=== PATIENT | female | born 1975 | race Caucasian/White ===

== ENCOUNTER 2016-08-27 19:38 | Emergency (ER) | payer OTHER ==
[2016-08-27 19:56] VITALS: BP 129/63; PULSE 67; RESP 18; TEMP 99.2; O2SAT 100
--- NOTE | 2016-08-27 20:51 | ED PDOC ---
HPI: CCC, URI, Sore Throat Time Seen by Provider: 08/27/16 20:38 Chief Complaint (Nursing): ENT Problem Chief Complaint (Provider): ENT problem History Per: Patient History/Exam Limitations: no limitations Have you had recent travel within the past 21 days to any of the following countries: [place], [place], [place] or [place]?: No Onset/Duration Of Symptoms: Days (x 4) Current Symptoms Are (Timing): Still Present Location Of Pain: Ear(s), Throat, Headache Associated Symptoms: Fever, Chills Additional Complaint(s): Walter Shafer is a 41 year old female, with no previous medical history , who presents to the ED with complaints of a sore throat ongoing for the past 4 days. Pt reports throat pain radiates to the ears and back of the head. Pt reports to also experiencing fever and chills. Pt denies changes in voice, drooling, cough or sick contact. Pt denies additional complaints at this time. PMD: none provided Past Medical History Reviewed: Historical Data, Nursing Documentation, Vital Signs Vital Signs: Last Vital Signs Temp 99.2 F 08/27/16 19:53 Pulse 67 08/27/16 19:53 Resp 18 08/27/16 19:53 BP 129/63 08/27/16 19:53 Pulse Ox 100 08/27/16 20:53 - Medical History PMH: No Chronic Diseases, Gall Bladder Disease - Family History Family History: States: No Known Family Hx - Home Medications Home Medications: Ambulatory Orders Medication Instructions Recorded Ciprofloxacin HCl [Cipro] 500 mg PO BID #20 tab 06/18/14 Famotidine [Pepcid] 20 mg PO Q12H #20 tab 06/18/14 Ondansetron [Zofran] 4 mg PO Q8H #10 tab 06/18/14 Non-Formulary 1 ea XX DAILY #1 ea 08/27/16 Pseudoephedrine [Sudafed Tab] 30 mg PO BID #20 tab 08/27/16 - Allergies Allergies/Adverse Reactions: Allergies Allergy/AdvReac Type Severity Reaction Status Date / Time No Known Allergies Allergy Verified 06/18/14 09:32 Review of Systems ROS Statement: Except As Marked, All Systems Reviewed And Found Negative Constitutional: Positive for: Fever, Chills ENT: Positive for: Ear Pain, Throat Pain Respiratory: Negative for: Cough Neurological: Positive for: Headache Physical Exam - Reviewed Nursing Documentation Reviewed: Yes Vital Signs Reviewed: Yes - Physical Exam Appears: Positive for: Well, Non-toxic, No Acute Distress Head Exam: Positive for: ATRAUMATIC, NORMAL INSPECTION, NORMOCEPHALIC Skin: Positive for: Normal Color, Warm, Dry ENT: Positive for: TM Is/Are (normal), Pharyngeal Erythema. Negative for: Sinus Pain/Drainage, Tonsillar Exudate, Tonsillar Swelling Neurologic/Psych: Positive for: Alert, Oriented. Negative for: Motor/Sensory Deficits - ECG O2 Sat by Pulse Oximetry: 100 (RA) Pulse Ox Interpretation: Normal Medical Decision Making Medical Decision Making: Initial Impression: Bacterial vs. Viral Initial Plan: * rapid strep * reevaluation strep negative pt will get psdueofed for congestion. and aurlgan for inner ear pain Scribe Attestation: Documented by Samaria Orr, acting as a scribe for Suki Gonzalez PA-C. Provider Scribe Attestation: All medical record entries made by the Scribe were at my direction and personally dictated by me. I have reviewed the chart and agree that the record accurately reflects my personal performance of the history, physical exam, medical decision making, and the department course for this patient. I have also personally directed, reviewed, and agree with the discharge instructions and disposition. Disposition - Clinical Impression Clinical Impression: Right ear pain - Patient ED Disposition Is Patient to be Admitted: No Counseled Patient/Family Regarding: Studies Performed, Diagnosis, Need For Followup - Disposition Disposition: Routine/Home Disposition Time: 21:23 Condition: STABLE Prescriptions: Non-Formulary 1 ea XX DAILY #1 ea Pseudoephedrine [Sudafed Tab] 30 mg PO BID #20 tab Instructions: Earache (ED)
== END 2016-08-27 22:28 | disposition home or self-care (01) ==
LOC: H.ER 19:38
DX: H92.01 Otalgia, right ear (principal); R51 Headache; J02.9 Acute pharyngitis, unspecified

== ENCOUNTER 2017-06-15 20:02 | Emergency (ER) | payer OTHER ==
[2017-06-15 20:17] VITALS: O2SAT 98
--- NOTE | 2017-06-15 20:47 | ED PDOC ---
HPI: General Adult Time Seen by Provider: 06/15/17 20:46 Chief Complaint (Nursing): Flu-like Symptoms Chief Complaint (Provider): flu like symptoms History Per: Patient Additional Complaint(s): 42-year-old female presents to emergency department with flulike symptoms that started yesterday. Patient has bodyaches, fever, chills, sore throat and cough. She took Motrin at 5 PM and this did not help. She vomited earlier but has been able to tolerate liquids and solids since then. No associated abdominal pain. PMD: Dr. Lloyd Past Medical History Reviewed: Historical Data Vital Signs: Last Vital Signs Temp 99.1 F 06/15/17 23:10 Pulse 68 06/15/17 23:10 Resp 18 06/15/17 23:10 BP 102/57 L 06/15/17 23:10 Pulse Ox 98 06/15/17 23:10 - Medical History PMH: No Chronic Diseases - Surgical History Surgical History: No Surg Hx - Family History Family History: States: No Known Family Hx - Living Arrangements Living Arrangements: With Family - Social History Current smoker - smoking cessation education provided: No Alcohol: None Drugs: Denies - Home Medications Home Medications: Ambulatory Orders Medication Instructions Recorded Ciprofloxacin HCl [Cipro] 500 mg PO BID #20 tab 06/18/14 Famotidine [Pepcid] 20 mg PO Q12H #20 tab 06/18/14 Ondansetron [Zofran] 4 mg PO Q8H #10 tab 06/18/14 Non-Formulary 1 ea XX DAILY #1 ea 08/27/16 Pseudoephedrine [Sudafed Tab] 30 mg PO BID #20 tab 08/27/16 Albuterol HFA [Ventolin HFA 90 1 puff IH ASDIR #1 unit 06/15/17 mcg/actuation (8 g)] Benzonatate 200 mg PO TID PRN #20 capsule 06/15/17 Levofloxacin [Levaquin] 500 mg PO DAILY #7 tablet 06/16/17 - Allergies Allergies/Adverse Reactions: Allergies Allergy/AdvReac Type Severity Reaction Status Date / Time No Known Allergies Allergy Verified 06/15/17 20:13 Review of Systems ROS Statement: Except As Marked, All Systems Reviewed And Found Negative Constitutional: Positive for: Fever, Chills, Other (body aches) Cardiovascular: Negative for: Chest Pain Respiratory: Positive for: Cough Gastrointestinal: Positive for: Nausea, Vomiting (x 1 earlier, none since). Negative for: Abdominal Pain, Diarrhea Genitourinary Female: Negative for: Dysuria Neurological: Positive for: Headache. Negative for: Dizziness Physical Exam - Reviewed Nursing Documentation Reviewed: Yes Vital Signs Reviewed: Yes - Physical Exam Appears: Positive for: Well Skin: Negative for: Rash Eye Exam: Positive for: Normal appearance ENT: Positive for: TM Is/Are (normal bilaterally), Pharyngeal Erythema Cardiovascular/Chest: Positive for: Regular Rate, Rhythm Respiratory: Positive for: Normal Breath Sounds. Negative for: Wheezing, Respiratory Distress Gastrointestinal/Abdominal: Positive for: Soft. Negative for: Tenderness, Distended, Guarding, Rebound Extremity: Positive for: Normal ROM Neurologic/Psych: Positive for: Alert, Oriented - Laboratory Results Result Diagrams: 06/15/17 21:40 06/15/17 21:40 Urine POC: Negative Urine dip results: Positive for: Leukocyte Esterase (small ), Blood (small). Negative for: Nitrate, Ketones, Glucose, Bilirubin, Protein - ECG Interpretation Of ECG: NSR 64 bpm, no acute finding, reviewed by PA and ED attending. O2 Sat by Pulse Oximetry: 98 Pulse Ox Interpretation: Normal - Other Rad Bedside chest X-Ray: Interpreted by Me, Viewed By Me X-Ray Interpretation: no acute finding Medical Decision Making Medical Decision Makin-year-old female with flu-like symptoms. Plan: Blood culture VBG CBC CMP CXR EKG IVF PO tylenol and motrin Flu swab Rapid strep test and urine dip She was aware of all diagnostic testing results. She feels better after meds given. Flu is negative. UTI noted. Will d/c with Levaquin to cover UTI and URI symptoms. Prescription for Ventolin inhaler and Tessalon Perles also provided. Disposition - Clinical Impression Clinical Impression: Influenza-like symptoms, UTI (lower urinary tract infection) - Patient ED Disposition Is Patient to be Admitted: No Counseled Patient/Family Regarding: Studies Performed, Diagnosis, Need For Followup, Rx Given - Disposition Referrals: Cristina Lloyd MD [Medical Doctor] - Disposition: Routine/Home Disposition Time: 22:44 Condition: STABLE Additional Instructions: TAKE RX MEDS DIRECTED. ALTERNATE OVER THE COUNTER TYLENOL EVERY 4 HRS (650 MG) AND OVER THE COUNTER MOTRIN (600 MG) EVERY 6 HRS FOR FEVER CONTROL AND BODY ACHES. REST AND DRINK PLENTY OF FLUIDS. FOLLOW UP IN 2-3 DAYS WITH PRIMARY CARE DOCTOR. Prescriptions: Albuterol HFA [Ventolin HFA 90 mcg/actuation (8 g)] 1 puff IH ASDIR #1 unit Benzonatate 200 mg PO TID PRN #20 capsule PRN Reason: Cough Levofloxacin [Levaquin] 500 mg PO DAILY #7 tablet Instructions: Upper Respiratory Infection (ED), Urinary Tract Infection in Women (ED) Forms: [employer] ([place]) Results - Lab Results Lab Results: 06/15/17 06/15/17 06/15/17 23:05 21:52 21:46 WBC RBC Hgb Hct MCV MCH MCHC RDW Plt Count MPV Neut % (Auto) Lymph % (Auto) [place] % (Auto) Eos % (Auto) Baso % (Auto) Neut # Lymph # [place] # Eos # Baso # pO2 35 VBG pH 7.37 VBG pCO2 44 VBG HCO3 23.9 VBG Total CO2 26.8 VBG O2 Sat (Calc) 78.9 H VBG Base Excess -0.2 L VBG Potassium 3.7 Glucose 92 Lactate 1.1 FiO2 21.0 Sodium 140.0 Potassium Chloride 108.0 H Carbon Dioxide Anion Gap BUN Creatinine Est GFR ( Amer) Est GFR (Non-Af Amer) Random Glucose Calcium Total Bilirubin AST ALT Alkaline Phosphatase Total Protein Albumin Globulin Albumin/Globulin Ratio Venous Blood Potassium 3.7 Urine Color Liseth Urine Clarity Turbid Urine pH 5.0 Ur Specific [place] 1.028 Urine Protein 30 Urine Glucose (UA) Neg Urine Ketones Negative Urine Blood Small Urine Nitrate Negative Urine Bilirubin Negative Urine Urobilinogen 0.2-1.0 Ur Leukocyte Esterase Large Urine RBC (Auto) 13 H Urine Microscopic WBC 16 H Ur Squamous Epith Cells 39 H Calcium Oxalate Crystal Mod H Urine Bacteria Occ H Influenza Typ A,B (EIA) Grp A Beta Strep Ag Negative 06/15/17 06/15/17 06/15/17 21:40 21:40 21:40 WBC 3.8 L RBC 4.29 Hgb 11.9 L Hct 36.5 MCV 85.1 MCH 27.8 MCHC 32.6 L RDW 13.8 Plt Count 146 MPV 10.1 Neut % (Auto) 68.9 Lymph % (Auto) 20.2 [place] % (Auto) 9.8 Eos % (Auto) 0.8 Baso % (Auto) 0.3 Neut # 2.6 Lymph # 0.8 L [place] # 0.4 Eos # 0.0 Baso # 0.0 pO2 VBG pH VBG pCO2 VBG HCO3 VBG Total CO2 VBG O2 Sat (Calc) VBG Base Excess VBG Potassium Glucose Lactate FiO2 Sodium 141 Potassium 4.1 Chloride 107 Carbon Dioxide 21 L Anion Gap 17 BUN 12 Creatinine 0.6 L Est GFR ( Amer) > 60 Est GFR (Non-Af Amer) > 60 Random Glucose 91 Calcium 8.4 Total Bilirubin 0.2 AST 20 ALT 32 Alkaline Phosphatase 66 Total Protein 7.0 Albumin 3.5 Globulin 3.5 Albumin/Globulin Ratio 1.0 Venous Blood Potassium Urine Color Urine Clarity Urine pH Ur Specific [place] Urine Protein Urine Glucose (UA) Urine Ketones Urine Blood Urine Nitrate Urine Bilirubin Urine Urobilinogen Ur Leukocyte Esterase Urine RBC (Auto) Urine Microscopic WBC Ur Squamous Epith Cells Calcium Oxalate Crystal Urine Bacteria Influenza Typ A,B (EIA) Negative for flu a/b Grp A Beta Strep Ag
[2017-06-15] MEDS ORDERED: Sodium Chloride 0.9% 1,000 ML IV STA ×2 (21:07→23:01)
[2017-06-15 21:49] LABS: BASO % 0.3 % (0.0-2.0); EOS % 0.8 % (0.0-4.0); HEMOGLOBIN 11.9 g/dL (12.0-16.0); LYMPH # 0.8 K/uL (1.0-4.3); LYMPH % 20.2 % (20.0-40.0); MEAN CELL VOLUME 85.1 fl (81.0-99.0); MEAN CORPUSCULAR HEMOGLOBIN 27.8 pg (27.0-31.0); MEAN CORPUSCULAR HGB CONC 32.6 g/dL (33.0-37.0); MEAN PLATELET VOLUME 10.1 fl (7.2-11.7); MONO # 0.4 K/uL (0.0-0.8); MONO % 9.8 % (0.0-10.0); NEUT # 2.6 K/uL (1.8-7.0); NEUT % 68.9 % (50.0-75.0); NRBC % 0.1 % (0.0-0.0); RBC 4.29 Mil/uL (3.80-5.20); RED CELL DISTRIBUTION WIDTH 13.8 % (11.5-14.5); WHITE BLOOD COUNT 3.8 K/uL (4.8-10.8)
[2017-06-15 21:55] LABS: VENOUS BLOOD GAS BASE EXCESS -0.2 mmol/L (0.0-2.0); VENOUS BLOOD GAS PCO2 44 mmHg (40-60); VENOUS BLOOD GAS PO2 35 mm/Hg (30-55); VENOUS BLOOD PH 7.37 (7.32-7.43)
[2017-06-15 22:06] LABS: ALBUMIN 3.5 g/dL (3.5-5.0); ALT/SGPT 32 U/L (9-52); AST/SGOT 20 U/L (14-36); BLOOD UREA NITROGEN 12 mg/dl (7-17); CALCIUM 8.4 mg/dL (8.4-10.2); GFR AFRICAN-AMERICAN > 60; GFR NON-AFRICAN AMERICAN > 60
[2017-06-16 00:38] LABS: SQUAMOUS EPITHIAL 39 /hpf (0-5); URINE BACTERIA OCC (<OCC); URINE BILIRUBIN NEGATIVE (NEGATIVE); URINE BLOOD SMALL (NEGATIVE); URINE CALCIUM OXALATE CRYSTALS MOD /hpf (<OCC); URINE CLARITY TURBID (Clear); URINE COLOR AMBER (YELLOW); URINE GLUCOSE (UA) NEG (Normal); URINE LEUKOCYTE ESTERASE LARGE Leu/uL (Negative); URINE NITRATE NEGATIVE (NEGATIVE); URINE PROTEIN 30 mg/dL (NEGATIVE); URINE UROBILINOGEN 0.2-1.0 mg/dL (0.2-1.0)
[2017-06-16 01:39] VITALS: BP 104/66; PULSE 63; RESP 16; TEMP 98.8
--- NOTE | 2017-06-16 10:26 | RAD ---
HISTORY: fever, cough COMPARISON: No prior. FINDINGS: LUNGS: Minor bibasilar atelectasis PLEURA: No significant pleural effusion identified, no pneumothorax apparent. CARDIOVASCULAR: Normal. OSSEOUS STRUCTURES: No significant abnormalities. VISUALIZED UPPER ABDOMEN: Normal. OTHER FINDINGS: None. IMPRESSION: Minor bibasilar atelectasis.
== END 2017-06-16 02:08 | disposition home or self-care (01) ==
LOC: H.ER 20:02
DX: J06.9 Acute upper respiratory infection, unspecified (principal); N39.0 Urinary tract infection, site not specified
CPT/HCPCS: 71045; 80053; 81003; 82803; 85025; 87040; 87070; 87086; 87430; 87804; 99283; J7040

== ENCOUNTER 2017-06-20 22:34 | Emergency (ER) | payer OTHER ==
[2017-06-21 00:08] VITALS: BP 155/56; PULSE 66; RESP 16; TEMP 99.6; O2SAT 100
[2017-06-21] MEDS ORDERED: Sodium Chloride 0.9% 1,000 ML IV STA (01:48)
--- NOTE | 2017-06-21 01:51 | ED PDOC ---
HPI:Nausea, Vomiting, Diarrhea Time Seen by Provider: 06/21/17 01:11 Chief Complaint (Nursing): GI Problem Chief Complaint (Provider): vomiting, diarrhea History Per: Patient History/Exam Limitations: no limitations Onset/Duration Of Symptoms: Days (3) Current Symptoms Are (Timing): Still Present Additional History Per: Patient Additional Complaint(s): 42 y/o female presents with vomiting, diarrhea x 3 days. Patient states she was seen here Sunday for flu-like symptoms and given antibiotic for UTI and cough medication. Patient states she followed up with her primary doctor Sunday and was given tamiflu for suspected Flu. Patient states that night she developed vomiting, and diarrhea started the next day. Denies fever,chest pain, shortnesss of breath, palpitations, urinary symptoms, recent travel, sick contacts. Past Medical History Reviewed: Historical Data, Nursing Documentation, Vital Signs Vital Signs: Last Vital Signs Temp 99.6 F 06/21/17 00:07 Pulse 66 06/21/17 00:07 Resp 16 06/21/17 00:07 BP 155/56 H 06/21/17 00:07 Pulse Ox 100 06/21/17 00:07 - Medical History PMH: No Chronic Diseases - Surgical History Surgical History: No Surg Hx - Family History Family History: States: No Known Family Hx - Living Arrangements Living Arrangements: With Family - Home Medications Home Medications: Ambulatory Orders Medication Instructions Recorded Ciprofloxacin HCl [Cipro] 500 mg PO BID #20 tab 06/18/14 Famotidine [Pepcid] 20 mg PO Q12H #20 tab 06/18/14 Ondansetron [Zofran] 4 mg PO Q8H #10 tab 06/18/14 Non-Formulary 1 ea XX DAILY #1 ea 08/27/16 Pseudoephedrine [Sudafed Tab] 30 mg PO BID #20 tab 08/27/16 Albuterol HFA [Ventolin HFA 90 1 puff IH ASDIR #1 unit 06/15/17 mcg/actuation (8 g)] Benzonatate 200 mg PO TID PRN #20 capsule 06/15/17 Levofloxacin [Levaquin] 500 mg PO DAILY #7 tablet 06/16/17 Dicyclomine [Bentyl] 20 mg PO TID PRN #15 tab 06/21/17 Ondansetron ODT [Zofran ODT] 4 mg PO Q8 PRN #10 odt 06/21/17 - Allergies Allergies/Adverse Reactions: Allergies Allergy/AdvReac Type Severity Reaction Status Date / Time No Known Allergies Allergy Verified 06/21/17 00:06 Review of Systems ROS Statement: Except As Marked, All Systems Reviewed And Found Negative Gastrointestinal: Positive for: Nausea, Vomiting, Abdominal Pain, Diarrhea Physical Exam - Reviewed Nursing Documentation Reviewed: Yes Vital Signs Reviewed: Yes - Physical Exam Appears: Positive for: Well, Non-toxic, No Acute Distress Head Exam: Positive for: ATRAUMATIC, NORMAL INSPECTION, NORMOCEPHALIC Skin: Positive for: Normal Color Eye Exam: Positive for: Normal appearance ENT: Positive for: Normal ENT Inspection Cardiovascular/Chest: Positive for: Regular Rate, Rhythm Respiratory: Positive for: Normal Breath Sounds Gastrointestinal/Abdominal: Positive for: Normal Exam, Bowel Sounds, Soft, Tenderness (epigastric) Back: Positive for: Normal Inspection Extremity: Positive for: Normal ROM Neurologic/Psych: Positive for: Alert, Oriented - Laboratory Results Result Diagrams: 06/21/17 02:18 06/21/17 02:18 - ECG O2 Sat by Pulse Oximetry: 100 - Progress ED Course And Treament: labs, IV fluids, IV zofran, IV pepcid, PO bentyl On re-eval, patient states she is feeling better. Tolerated PO Patient educated on findings, discharged with rx Zofran, Bentyl. Advised fluids, bland diet. Follo wup PMD 2-3 days. Return precautions given. Disposition - Clinical Impression Clinical Impression: Gastroenteritis - Patient ED Disposition Is Patient to be Admitted: No Counseled Patient/Family Regarding: Studies Performed, Diagnosis, Need For Followup, Rx Given - Disposition Disposition: Routine/Home Disposition Time: 04:08 Condition: IMPROVED Prescriptions: Dicyclomine [Bentyl] 20 mg PO TID PRN #15 tab PRN Reason: Pain, Mild (1-3) Ondansetron ODT [Zofran ODT] 4 mg PO Q8 PRN #10 odt PRN Reason: Nausea/Vomiting Instructions: Gastroenteritis (ED) Forms: [employer] (Chinese)
[2017-06-21 02:22] LABS: BASO % 0.5 % (0.0-2.0); EOS # 0.1 K/uL (0.0-0.7); EOS % 1.3 % (0.0-4.0); HEMOGLOBIN 13.2 g/dL (12.0-16.0); LYMPH % 49.5 % (20.0-40.0); MEAN CELL VOLUME 83.8 fl (81.0-99.0); MEAN CORPUSCULAR HEMOGLOBIN 27.3 pg (27.0-31.0); MEAN CORPUSCULAR HGB CONC 32.6 g/dL (33.0-37.0); MEAN PLATELET VOLUME 9.6 fl (7.2-11.7); MONO # 0.5 K/uL (0.0-0.8); NEUT # 1.4 K/uL (1.8-7.0); NEUT % 35.7 % (50.0-75.0); NRBC % 1.3 % (0.0-0.0); RBC 4.82 Mil/uL (3.80-5.20); RED CELL DISTRIBUTION WIDTH 13.2 % (11.5-14.5); WHITE BLOOD COUNT 4.1 K/uL (4.8-10.8)
[2017-06-21 02:42] LABS: ALB/GLOB RATIO 1.1 (1.0-2.1); ALBUMIN 4.2 g/dL (3.5-5.0); ALT/SGPT 30 U/L (9-52); AST/SGOT 28 U/L (14-36); BLOOD UREA NITROGEN 17 mg/dl (7-17); CALCIUM 8.8 mg/dL (8.4-10.2); GFR AFRICAN-AMERICAN > 60; GFR NON-AFRICAN AMERICAN > 60; LIPASE 34 U/L (23-300)
== END 2017-06-21 05:52 | disposition home or self-care (01) ==
LOC: H.ER 22:34
DX: K52.9 Noninfective gastroenteritis and colitis, unspecified (principal)
CPT/HCPCS: 80053; 81025; 83690; 85025; 96374; 99283; J2405; J7040